=== PATIENT | female | born 1970 | race African-American/Black ===

== ENCOUNTER 2023-12-14 08:11 | Emergency (ER) | payer OTHER ==
[2023-12-14] MEDS ORDERED: Benzonatate 100 MG CAP ONE (08:46)
[2023-12-14 10:05] LABS: SARS-CoV-2 NAA Rapid Test Not Detected (NotDetected)
== END 2023-12-14 09:58 | disposition home or self-care (01) ==
LOC: ERS 08:11
DX: R05.9 Cough, unspecified (principal); I10 Essential (primary) hypertension; E11.9 Type 2 diabetes mellitus without complications; I25.2 Old myocardial infarction; Z95.0 Presence of cardiac pacemaker
CPT/HCPCS: 0240U; 71045; 93005; 99284

== ENCOUNTER 2024-05-17 22:08 | Emergency (ER) | payer OTHER ==
[~2024-05-17 22:08] MED LIST: Iopamidol-370 76% 500 ML MDV (1 ML CHARGE) ONE
[2024-05-17] MEDS ORDERED: Acetaminophen 325 MG TAB ONE (22:54)
[2024-05-17] MEDS ORDERED: Ondansetron PF 4 MG/2 ML Vial ONE (22:54)
[2024-05-18 00:05] LABS: Hematocrit 31.7 % (36.0-47.0); Mean Corpuscular HGB CONC 31.5 g/dL (32.0-36.0); Mean Corpuscular Hemoglobin 29.3 pg (27.0-31.0); Mean Platelet Volume 10.7 fL (7.4-10.4); Platelet Count 237 10x3/uL (130-400); RBC Distribution Width 12.5 % (11.5-14.5); Red Blood Cell (RBC) Count 3.41 mill/uL (4.20-5.40)
[2024-05-18 00:15] LABS: Bacteria/HPF 3+ HPF (None Seen); Bilirubin Negative (Negative); Blood, Urine Negative (Negative); CAUTI Indications for Culture Pelvic or flank pain; Clarity Clear (Clear); Glucose, Urine (Dipstick) Normal (Negative); Ketone, Urine Negative (Negative); Leukocyte 75 Leu/uL (Negative); Nitrite Negative (Negative); Protein, Urine (Dipstick) 50 mg/dL (Neg-Trace); RBC/HPF 0-3 HPF (0-3); Specific Gravity, Urine 1.045 (1.002-1.036); pH, Urine 6.5 (5.0-9.0)
[2024-05-18 00:19] LABS: ALT (SGPT) 25 U/L (8-55); AST (SGOT) 22 U/L (5-34); Albumin 3.5 g/dL (3.5-5.0); Alkaline Phosphatase 87 U/L (40-110); Anion Gap 11 mmol/L (10-20); BUN (Urea Nitrogen) 10 mg/dL (9.8-20.1); Bilirubin, Total 0.3 mg/dL (0.2-1.2); Calc. Creatinine Clearance 0 mL/min (70-130); Carbon Dioxide 26 mmol/L (22-29); Chloride 109 mmol/L (98-107); Estimated GFR 99; Globulin 4.3 g/dL (2.4-3.5); Glucose 125 mg/dL (70-105); Lipase 11 U/L (8-78); Magnesium 1.7 mg/dL (1.6-2.6); Potassium 3.2 mmol/L (3.5-5.1); Protein, Total 7.8 g/dL (6.0-8.3); Sodium 143 mmol/L (136-145)
[2024-05-18 00:20] LABS: Urine Culture Reflex No No
[2024-05-18 00:24] LABS: Troponin I Less than 0.010 ng/mL (< 0.028)
[2024-05-18 00:29] LABS: Band 8 % (5-11); Lymphocytes 24 % (21-51); Monocytes 7 % (0-10); Neutrophil 61 % (42-75); Ovalocytes MODERATE= 6-15 cells HPF (0-1); Platelet Adequacy Comment Platelets Normal; Smudge Cells 19.8 %
[2024-05-18] MEDS ORDERED: Sodium Chloride 0.9% 100 ML ONE (00:39)
[2024-05-18] MEDS ORDERED: cefTRIAXone (ROCEPHIN) 1 GM VIAL ONE (00:39)
[2024-05-18] MEDS ORDERED: Potassium Chloride 20 MEQ TAB ONE (00:39)
[2024-05-19 04:30] LABS: Chlamydia by PCR, Vaginal Swab Not Detected (NotDetected); GC by PCR, Vaginal Swab Not Detected (NotDetected)
== END 2024-05-18 01:30 | disposition home or self-care (01) ==
LOC: ERS 22:08
DX: K62.89 Other specified diseases of anus and rectum (principal); N34.1 Nonspecific urethritis; E11.9 Type 2 diabetes mellitus without complications; I10 Essential (primary) hypertension; I25.2 Old myocardial infarction; Z79.82 Long term (current) use of aspirin
CPT/HCPCS: 74177; 80053; 81001; 82962; 83690; 83735; 84484; 85025; 87491; 87591; 93005; J0696; J2405; J3490; 36415; 36416; 96361; 96365; 96375; Q9967

== ENCOUNTER 2025-10-30 09:14 | Emergency (ER) | payer OTHER, MEDICAID | END 2025-10-30 11:17 | disposition home or self-care (01) | LOC: ERS 09:14 | DX: J06.9 Acute upper respiratory infection, unspecified (principal); I25.2 Old myocardial infarction; I10 Essential (primary) hypertension; E11.9 Type 2 diabetes mellitus without complications; E78.5 Hyperlipidemia, unspecified; Z95.0 Presence of cardiac pacemaker; Z79.84 Long term (current) use of oral hypoglycemic drugs; Z79.899 Other long term (current) drug therapy | CPT/HCPCS: 71045; 87428 ==